=== PATIENT | female | born 1995 | race Caucasian/White ===

== ENCOUNTER 2017-01-16 23:02 | Emergency (ER) | payer SELFPAY ==
[2017-01-16 23:31] LABS: RBC URINE 2 /hpf (0-3); URINE BACTERIA RARE (<OCC); URINE BILIRUBIN NEGATIVE (NEGATIVE); URINE BLOOD NEGATIVE (NEGATIVE); URINE COLOR Straw (YELLOW); URINE GLUCOSE (UA) NORMAL (Normal); URINE KETONE NEGATIVE (NEGATIVE); URINE LEUKOCYTE ESTERASE NEG Leu/uL (Negative); URINE PROTEIN NEGATIVE (NEGATIVE); URINE UROBILINOGEN NORMAL mg/dL (0.2-1.0); WBC URINE 3 /hpf (0-5)
--- NOTE | 2017-01-16 23:40 | C.PDOC ---
History Of Present Illness Patient is a 21 yo female who presents to the ER with dysuria and frequent urination for the past two weeks. Pt also complains of occasional R abdominal pain that began today; no bleeding was noted. Denies fever or chills. 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 ) Current Symptoms Are (Timing): Still Present Recent travel outside of the [place]: No Past Medical History Reviewed: Historical Data, Nursing Documentation, Vital Signs Vital Signs: Last Vital Signs Temp 98.1 F 01/16/17 23:12 Pulse 101 H 01/16/17 23:12 Resp 20 01/16/17 23:12 BP 136/91 H 01/16/17 23:12 Pulse Ox 100 01/17/17 00:36 - Medical History PMH: No Chronic Diseases Family History: States: Unknown Family Hx - Social History Hx Tobacco Use: No Hx Alcohol Use: No Hx Substance Use: No - Immunization History Hx Tetanus Toxoid Vaccination: Yes Hx Influenza Vaccination: Yes Hx Pneumococcal Vaccination: Yes Review Of Systems Constitutional: Negative for: Fever, Chills, Sweats Cardiovascular: Negative for: Chest Pain, Palpitations Respiratory: Negative for: Shortness of Breath Gastrointestinal: Positive for: Abdominal Pain (R flank pain). Negative for: Nausea, Vomiting Genitourinary: Positive for: Dysuria, Frequency. Negative for: Hematuria Psych: Negative for: Anxiety, Depression, Suicidal ideation Physical Exam - Physical Exam Appears: Non-toxic Skin: Normal Color, Warm, Dry Head: Atraumatic, Normacephalic Oral Mucosa: Moist Chest: Symmetrical Cardiovascular: Rhythm Regular, No Murmur Respiratory: Normal Breath Sounds, No Rales, No Rhonchi, No Wheezing Gastrointestinal/Abdominal: Other (dull pain in R abdominal area; negative Gonzales's point and McBurney's point. Tympanic epigastrium) Neurological/Psych: Oriented x3 ED Course And Treatment - Laboratory Results Lab Interpretation: Normal (ua neg.) Urine POC: Negative O2 Sat by Pulse Oximetry: 100 Reevaluation Time: 00:22 Reassessment Condition: Unchanged (remains asymptomatic) Medical Decision Making Medical Decision Making: probable constipation colicky R abd pain with dull percussion and tympanic epigastrum defer w/u with informed consent, agree to trial laxative and return in AM PRN Disposition Doctor Will See Patient In The: Office Counseled Patient/Family Regarding: Studies Performed, Diagnosis - Disposition Referrals: [facility] [Outside] [facility] [Outside] [email or web address] [Outside] Disposition: HOME/ ROUTINE Disposition Time: 00:23 Condition: GOOD Additional Instructions: trial a laxative overnight- drink a bottle of Mag Citrate- and re-evaluate your abdominal discomfort after using the bathroom 2-3 times. Return in AM as needed. Instructions: Constipation (ED) Forms: [email or web address] (Slovak) - Clinical Impression Clinical Impression: Colicky RUQ abdominal pain - Scribe Statement The provider has reviewed the documentation as recorded by the Scribe Radha Brown All medical record entries made by the Scribe were at my direction and personally dictated by me. I have reviewed the chart and agree that the record accurately reflects my personal performance of the history, physical exam, medical decision making, and the department course for this patient. I have also personally directed, reviewed, and agree with the discharge instructions and disposition.
[2017-01-17 00:41] VITALS: BP 120/80; PULSE 80; RESP 14; TEMP 98; O2SAT 99
== END 2017-01-17 00:40 | disposition home or self-care (01) ==
LOC: C.ER 23:02
DX: R10.11 Right upper quadrant pain (principal)